=== PATIENT | female | born 1985 ===

== ENCOUNTER 2017-11-13 17:31 | Emergency (ER) | payer BC ==
[2017-11-13 18:40] VITALS: BP 136/77
--- NOTE | 2017-11-13 18:47 | UC ---
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 Negative: Cough, Chest Pain, Dysuria, SOB, Vomiting, Wheezing - Allergy/Home Medications Allergies/Adverse Reactions: Allergies Allergy/AdvReac Type Severity Reaction Status Date / Time ampicillin Allergy See Comment Verified 11/13/17 18:40 Home Medications: Home Medications Oxymetazoline 0.05% NASAL SPR* [Afrin 0.05% NASAL SPRAY*] 1 spray NASAL Q12H 11/28 [History Confirmed 11/13/17] PMH/Surg Hx/FS Hx/Imm Hx Previously Healthy: Yes - Surgical History Surgical History: Yes Surgery Procedure, Year, and Place: , LEFT CERVICAL LYMPH NODE REMOVAL - Family History Known Family History: Positive: None - Social History Occupation: Employed Full-time Lives: With Family Alcohol Use: Occasionally Substance Use Type: None Smoking Status (MU): Never Smoked Tobacco - Immunization History Vaccination Up to Date: Yes Review of Systems Constitutional: Fever Skin: Negative Eyes: Negative ENT: Sore Throat, Nasal Discharge, Sinus Congestion, Sinus Pain/Tenderness Respiratory: Negative Cardiovascular: Negative Gastrointestinal: Diarrhea Genitourinary: Negative Motor: Negative Neurovascular: Negative Musculoskeletal: Negative Neurological: Headache Psychological: Negative Is Patient Immunocompromised?: No All Other Systems Reviewed And Are Negative: Yes Physical Exam Triage Information Reviewed: Yes Appearance: Well-Appearing Vital Signs: Initial Vital Signs Temp 99.2 F 11/13/17 18:32 Pulse 105 11/13/17 18:32 Resp 18 11/13/17 18:32 BP 136/77 11/13/17 18:32 Pulse Ox 98 11/13/17 18:32 Vital Signs Reviewed: Yes Eyes: Positive: Conjunctiva Clear ENT: Positive: Pharynx normal, Nasal congestion, Nasal drainage - clear, TMs normal, Uvula midline. Negative: Tonsillar swelling, Tonsillar exudate, Trismus , Muffled voice, Hoarse voice, Sinus tenderness Neck: Positive: Supple, Nontender, Tenderness @ - mild peritonsilar, Enlarged Nodes @ - mild peritonsilar Respiratory: Positive: Lungs clear, Normal breath sounds, No respiratory distress Cardiovascular: Positive: RRR, No Murmur, Pulses Normal Abdomen Description: Positive: Nontender, No Organomegaly, Soft Bowel Sounds: Positive: Present Musculoskeletal: Positive: ROM Intact Neurological: Positive: Alert Psychological: Positive: Age Appropriate Behavior Skin Exam: Normal Diagnostics - Laboratory Diagnostic Studies Completed/Ordered: RAPID STREP AND FLU ARE NEGATIVE Course/Dx - Course Course Of Treatment: DM=[id number]/77, no hx htn. i think elevated due to illness. rapid strep and flu=negative. this is c/w ATILIO. pt declined the tamiflu. she agrees to close f/u for recheck. - Differential Dx - Multi-Symptom Provider Diagnoses: Influenza like illness. Discharge - Discharge Plan Condition: Stable Disposition: HOME Patient Education Materials: Influenza (ED) Forms: *Work Release Referrals: Giovanna Gonzalez MD [Primary Care Provider] - 5 Days
== END 2017-11-13 19:43 | disposition home or self-care (01) ==
LOC: UCCORT 17:31
DX: J11.1 Influenza due to unidentified influenza virus with other respiratory manifestations (principal); Z88.0 Allergy status to penicillin
CPT/HCPCS: 87502; 87651; 99211; G0463